=== PATIENT | female | born 1945 | race Caucasian/White ===

== ENCOUNTER 2024-04-03 11:55 | Emergency (ER) | payer OTHER ==
[~2024-04-03] VITALS: Ht 165.1 cm; Wt 79.4 kg
[2024-04-03] MEDS ORDERED: Diphth,Pertuss(Acell),Tet Vac 0.5 ML VIAL IM ONE (12:25)
[2024-04-03] MEDS ORDERED: Ketorolac Tromethamine 30mg Vial IM ONE (14:55)
== END 2024-04-03 15:13 | disposition home or self-care (01) ==
LOC: ER 11:55
DX: S61.217A Laceration without foreign body of left little finger without damage to nail, initial encounter (principal); W26.0XXA Contact with knife, initial encounter; Z23 Encounter for immunization
CPT/HCPCS: 73140; 90471; 90715; 96372; 99283-25; J1885